=== PATIENT | female | born 1950 | race Caucasian/White ===

== ENCOUNTER → 2021-02-12 | Outpatient (CLI) | payer MEDICARE, BC, OTHER ==
--- NOTE | 2021-02-12 14:43 | NM ---
EXAMINATION TYPE: NM renal flow and function DATE OF EXAM: 02/12/2021 COMPARISON: NONE HISTORY: Hydronephrosis Following administration of 10.3 mCi Tc99m MAG3. Immediate images post injection. FINDINGS: Left: 10.7 %. Right: 89.3 %. Max renal flow left: 1 minutes. Max renal flow right: 89.3 minutes. Satisfactory accumulation of radiotracer within both renal collecting systems. T 1/2 left: NA minutes. T 1/2 right: 9 minutes minutes. FINDINGS: There is an abnormal time activity curve on the left with reduced perfusion, uptake and excretion. Ti me activity curve on the right is within normal limits. IMPRESSION: 1. Abnormal split renal function of as noted above. Abnormal time activity curve of the left kidney. Findings would be compatible with hydronephrosis. No other imaging is available for comparison.
== END | disposition home or self-care (01) ==
LOC: RADNMMAIN 12:44
PROVIDERS: ATTEND Urology
DX: N28.89 Other specified disorders of kidney and ureter (principal)
CPT/HCPCS: 78707; A9562

== ENCOUNTER → 2021-03-07 | Outpatient (CLI) | payer MEDICARE, BC, OTHER ==
--- NOTE | 2021-03-07 15:45 | NM ---
EXAMINATION TYPE: NM renal flow and function DATE OF EXAM: 03/07/2021 COMPARISON: Prior nuclear medicine study February 12, 2021 HISTORY: Hydronephrosis with ureteral stricture. Following administration of 10.7 mCi Tc99m MAG3. Immediate images post injection. FINDINGS: Left: 12.7 %. Right: 87.3 %. Max renal flow left: 0.367 minutes. Max renal flow right: 87.3 minutes. Satisfactory accumulation of radiotracer within both renal collecting systems. T 1/2 left: 0.492 minutes. T 1/2 right: 7.691 minutes. FINDINGS: Persistent asymmetric increased radiotracer uptake to right kidney versus left kidney is dynamic jelly rial phase images similar to prior. There is subsequent right-sided excretion filling bladder. There is asymmetric diminished and delayed radiotracer uptake to left kidney and delayed excretion similar to prior. IMPRESSION: As above. Similar findings to prior study. Persistent diminished blood flow and subsequen t delayed uptake and excretion to left kidney with normal right kidney. Correlate clinically.
== END | disposition home or self-care (01) ==
LOC: RADNMMAIN 12:44
PROVIDERS: ATTEND Urology
DX: N13.1 Hydronephrosis with ureteral stricture, not elsewhere classified (principal)
CPT/HCPCS: 78707; A9562